=== PATIENT | female | born 1950 | race Asian ===

== ENCOUNTER 2021-11-15 22:45 | Emergency (ER) | payer MEDICARE, OTHER ==
[~2021-11-15] VITALS: Ht 157.5 cm; Wt 65.5 kg
--- NOTE | 2021-11-16 00:16 | PHYS DOC ---
Past History Past Medical History: UTI General Adult EDM: Chief Complaint: LOWER EXT PAIN HPI: HPI: ". My legs hurt so bad.. ache.. bad.. all night.. I had my massage them.. but it has hot helpled.." Patient is a 70 year old [place] female who presents with bilateral leg pain. . The patient localized pain primarily in the calves and feet area. Patient had no previous history of DVT. Does have a past history of coronary artery disease status post angioplasty, tuberculosis, broken ankle, osteoarthritis, osteopenia, GERD, diverticulosis, heart disease, frozen shoulder, thyroid cancer status post resection, Abena's disease, arthritis, copperhead bite,. Patient does have a history of allergies and MELY neomycin polymycin iodine and pollen. Patient had multiple surgeries including hysterectomy and bladder lift in 1999, gallbladder surgery 2015,) evaluation 2017, total thyroidectomy 2017, angiogram 2018, colon scope repeated in August 2019 for follow-up evaluation. EGDs in 2019.. Patient has never had DVTs. Patient does follow with Dr.K Hammond as primary and Dr. Parrish at [facility] for cardiolgoy. No recent travel. No specific ill contacts. Does plan to travel to [place] next month very concerned that she may not be able to go because of the pain in her legs. Patient has had recent dental extractions Patient has had both Covid vaccinations and booster in September. And flu vaccination. Patient has not taken anything for the pain today. Patient has been a use present for the last 44 years. Patient also complaining of dysuria. Review of Systems: Review of Systems: Constitutional: Denies fever or chills Eyes: Denies change in visual acuity HENT: Denies nasal congestion or sore throat Respiratory: Denies cough or shortness of breath Cardiovascular: Denies chest pain or edema GI: Denies abdominal pain, nausea, vomiting, bloody stools or diarrhea : Denies dysuria Musculoskeletal: Complains of bilateral leg pain Integument: Denies rash Neurologic: Denies headache, focal weakness or sensory changes Endocrine: Denies polyuria or polydipsia Lymphatic: Denies swollen glands Psychiatric: Denies depression or anxiety Family History: Family History: Significant family history of father at age 65 due to heart attack, hypertension alcoholism, mother age 68 due to stroke and hypertension arthritis, brother age 57 of alcoholism and tuberculosis and motor vehicle accident, sister age 31 from cancer stomach cancer, younger sister of thyroid heart disease and hypertension older daughter has thyroid cancer. Current Medications: Current Meds: See nursing for home meds Allergies: Allergies: See nursing for allergies Physical Exam: PE: Constitutional: Moderate acute distress, non-toxic appearance. [] HENT: Normocephalic, atraumatic, bilateral external ears normal, oropharynx moist, no oral exudates, nose normal. [] Eyes: PERRLA, EOMI, conjunctiva normal, no discharge. [] Neck: Normal range of motion, no tenderness, supple, no stridor. Thyroid cancer surgery scar Cardiovascular:Heart rate regular rhythm, no murmur [], PMI to left Lungs & Thorax: Bilateral breath sounds equal at apex on auscultation [] Abdomen: Bowel sounds normal, soft, no tenderness, no masses, no pulsatile masses. Old surgery scars. Skin: Warm, dry, no erythema, no rash. [] Cap refill is equal and toes as in fingers. Back: No tenderness, no CVA tenderness. [] Extremities: Bilateral ankle and leg tenderness, no cyanosis, no clubbing, ROM intact, no edema. No true cording appreciated. Neurologic: Alert and oriented X 3, normal motor function, normal sensory function, no focal deficits noted. [] Psychologic: Affect anxious , judgement normal, mood normal. [] EKG: EKG: My interpretation EKG shows a sinus cardia rhythm at 52 bpm. No findings of acute STEMI or contralateral changes. Time of EKG is 239 hours My interpretation of second EKG shows a sinus bradycardia 52 bpm. No findings of acute STEMI or contralateral changes. Some mild right axis deviation. Time of EKG is 349 hours [] Radiology/Procedures: Radiology/Procedures: [] Heart Score: C/O Chest Pain: N/A Risk Factors: Risk Factors: DM, Current or recent (<one month) smoker, HTN, HLP, family history of CAD, obesity. Risk Scores: Score 0 - 3: 2.5% MACE over next 6 weeks - Discharge Home Score 4 - 6: 20.3% MACE over next 6 weeks - Admit for Clinical Observation Score 7 - 10: 72.7% MACE over next 6 weeks - Early Invasive Strategies Course & Med Decision Making: Course & Med Decision Making Pertinent Labs and Imaging studies reviewed. (See chart for details) Take Tylenol and ibuprofen as needed for discomfort. Follow-up primary care. Return if any concerns. Impression: 1. Bilateral Leg Pain 2. Arthritis exacerbation 3. Mild elevation magnesium 2.5 4. Normal D-dimer 5. Bradycardia [] Dragon Disclaimer: [place] Disclaimer: This electronic medical record was generated, in whole or in part, using a voice recognition dictation system. Departure Departure: Referrals: CATHERINE COTTRELL DO, M[facility] (PCP) [place] Disclaimer This chart was dictated in whole or in part using Voice Recognition software in a busy, high-work load, and often noisy Emergency Department environment. It may contain unintended and wholly unrecognized errors or omissions. JANELL YADAV MD Nov 16, 2021 00:16
[2021-11-16] MEDS ORDERED: IV RINGERS SOLUTION,LACTATED 1,000 ML IV SCH (01:45)
[2021-11-16] MEDS ORDERED: HYDROcodon/IBUPROFEN 7.5/200MG 1 TAB TABLET PO ONE (01:45)
[2021-11-16 02:25] LABS: BACTERIA,URINE 0 /HPF (0-FEW); BILIRUBIN,URINE NEG (NEG); CLARITY,URINE HAZY; COLOR,URINE YELLOW; GLUCOSE,URINE NEG (NEG); NITRITE,URINE NEG (NEG); RBC,URINE 0 /HPF (0-2); SQUAMOUS EPITHELIAL CELL,UR OCC /LPF; UROBILINOGEN,URINE 0.2 mg/dL (0.2 mg/dL); WBC,URINE OCC /HPF (0-4)
[2021-11-16 02:51] LABS: BASO # 0.1 x10^3/uL (0.0-0.2); BASO % 1 % (0-3); EOS # 0.1 x10^3/uL (0.0-0.7); EOS % 1 % (0-3); HEMATOCRIT 40.6 % (36.0-47.0); HEMOGLOBIN 13.5 g/dL (12.0-15.5); LYMPH # 1.9 x10^3/uL (1.0-4.8); LYMPH % 39 % (24-48); MEAN CORPUSCULAR HEMOGLOBIN 33 pg (25-35); MEAN CORPUSCULAR HGB CONC 33 g/dL (31-37); MEAN CORPUSCULAR VOLUME 100 fL (79-100); MONO # 0.3 x10^3/uL (0.0-1.1); MONO % 7 % (0-9); NEUT # 2.5 x10^3uL (1.8-7.7); NEUT % 52 % (31-73); PLATELET COUNT 189 x10^3/uL (140-400); RED BLOOD COUNT 4.07 x10^6/uL (3.50-5.40); WHITE BLOOD COUNT 4.9 x10^3/uL (4.0-11.0)
[2021-11-16 02:59] LABS: CALCIUM 8.7 mg/dL (8.5-10.1); CREATININE 0.6 mg/dL (0.6-1.0); GFR 99.1
[2021-11-16 03:12] LABS: ALBUMIN 3.7 g/dL (3.4-5.0); DIRECT BILIRUBIN 0.1 mg/dL (0.0-0.2); MAGNESIUM 2.5 mg/dL (1.8-2.4); TOTAL BILIRUBIN 0.5 mg/dL (0.2-1.0)
[2021-11-16] MEDS ORDERED: KETOROLAC 30 MG/ML VIAL. IVP ONE (04:15)
[2021-11-16] MEDS ORDERED: methylPREDNISolone ACETATE 40 MG/ML VIAL. IM ONE (04:15)
[2021-11-16 04:30] VITALS: BP 133/70
--- NOTE | 2021-11-16 06:57 | EKG ---
[address] [address] Test Date: 2021-11-16 Test Time: 03:49:37 Pat Name: ELMER OREILLY Department: Room: Gender: F Credit Collections Specialist: GOMEZ : 1950 Requested By: JANELL YADAV Order Number: [id number] Reading MD: Dann Antoine MD Measurements Intervals [place] Rate: 52 P: 140 IA: 146 QRS: 139 QRSD: 92 T: 170 QT: 472 QTc: 441 Interpretive Statements A-PACED LIMB LEAD MISPLACEMENT Electronically Signed On 11-18-2021 9:45:10 CIGAR SORTER by Dann Antoine MD
--- NOTE | 2021-11-16 08:04 | EKG ---
[address] [address] Test Date: 2021-11-16 Test Time: 02:39:05 Pat Name: ELMER OREILLY Department: Room: Gender: F Network Management Specialist: GOMEZ : 1950 Requested By: JANELL YADAV Order Number: [id number] Reading MD: Dann Antoine MD Measurements Intervals [place] Rate: 52 P: [place]: QRS: 21 QRSD: 96 T: 22 QT: 470 QTc: 439 Interpretive Statements SR NON-SPECIFIC ST/T CHANGES SHORT [place] INTERVAL Electronically Signed On 11-18-2021 13:10:36 SAVE ALL OPERATOR by Dann Antoine MD
== END 2021-11-16 04:46 | disposition home or self-care (01) ==
LOC: ER 22:45
DX: M79.605 Pain in left leg (principal); M79.604 Pain in right leg; M19.90 Unspecified osteoarthritis, unspecified site; E83.42 Hypomagnesemia; R00.1 Bradycardia, unspecified; I25.10 Atherosclerotic heart disease of native coronary artery without angina pectoris; K21.9 Gastro-esophageal reflux disease without esophagitis; Z87.440 Personal history of urinary (tract) infections
CPT/HCPCS: 36415; 80048; 80076; 81001; 82550; 83735; 83880; 84443; 84484; 85025; 85379; 85610; 85730; 87086; 93005; 96361; 96372; 96374; 99284; J1030; J1885; J7120

== ENCOUNTER → 2022-01-20 | Outpatient (CLI) | payer MEDICARE, OTHER ==
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
== END ==
LOC: CT 13:24
PROVIDERS: ATTEND Family Medicine Sports Medicine
DX: I65.23 Occlusion and stenosis of bilateral carotid arteries (principal); G93.89 Other specified disorders of brain; I67.89 Other cerebrovascular disease; V89.2XXA Person injured in unspecified motor-vehicle accident, traffic, initial encounter
CPT/HCPCS: 70450

== ENCOUNTER → 2022-02-04 | Outpatient (CLI) | payer MEDICARE, OTHER ==
--- NOTE | 2022-02-04 11:11 | RAD ---
EXAM: DUAL ENERGY X-RAY ABSORPTIOMETRY (DEXA). HISTORY: Postmenopausal screening. FINDINGS: The lowest measured T-score is -1.5 in the lumbar spine, based on a bone mineral density of 1.006 g/cm^2. Refer to the worksheets for full detail. There has been a 0.4 percent decrease in density of the lumbar spine compared to the prior study. The re is no prior assessment of the right hip for comparison. IMPRESSION: 1. Low bone mass. Bone mineral density yields a T-score between -1.0 and -2.5. Fracture risk is incre ased. 2. FRAX report: Not calculated. METHODOLOGY: Dual energy x-ray absorptiometry was performed to measure bone mineral density. The foll owing analysis is based on the 2019 Official Positions of the International Society for Clinical Dens itometry: Measurements of the hips and the average of L1-L4 are preferred. When the spine and/or hip cannot be feasibly measured or interpreted, or in the setting of hyperparathyroidism, distal radial bone minera l density may be measured. The lumbar spine T-score is based on the average bone mineral density of L1-L4. In the setting of art ifact or anatomic abnormality, some lumbar levels may be excluded, and the remaining levels used for calculation. A single lumbar level is not used for diagnosis, and if only a single level is available for assessment, another anatomic site will be used to assign a diagnosis. The hip T-score is based on the bone mineral density measurement of the femoral neck or total proxima l femur of either side, whichever is lowest. Bilateral mean values are not used for diagnosis. The forearm T-score is derived from 33% of the distal radius of the nondominant forearm. Electronically signed by: Italia Kelley MD (02/04/2022 11:09 AM) [id number]
== END ==
LOC: DXRAD 10:44
PROVIDERS: ATTEND Family Medicine Sports Medicine
DX: M85.88 Other specified disorders of bone density and structure, other site (principal); M81.0 Age-related osteoporosis without current pathological fracture
CPT/HCPCS: 77080